=== PATIENT | male | born 1930 | race Hispanic/Latino ===

== ENCOUNTER 2017-04-12 16:17 | Inpatient (IN) | payer MEDICARE, OTHER ==
--- NOTE | 2017-04-12 16:44 | ED PDOC ---
Psych Transfer Clearance - Clearance Statement Clearance Statement: Reviewed vital signs, lab results and transfer papers. Patient clinically stable for psychiatric admission.
--- NOTE | 2017-04-12 19:00 | PCM.BM ---
<Patricia Calderon - Last Filed: 04/12/17 18:58> Treatment Plan Problems - Problems identified on initial assessmt Anxiety Date Initiated: 04/12/17 Time Initiated: 18:59 Assessment reference: NA Status: Active Priority: 3 Agitated/ aggressive behavior Date Initiated: 04/12/17 Time Initiated: 19:00 Assessment reference: NA Status: Active Priority: 1 Ineffective Implse Control Date Initiated: 04/12/17 Time Initiated: 19:01 Assessment reference: NA Status: Active Priority: 2 Treatment assets and liabiliti Patient Assests: cooperative, motivated, good support system, negotiates basic needs Patient Liabilities: medical problems, imparied memory - Milieu Protocol Maintain good personal hygiene: daily Encourage regular showers, daily Remind patient to perform daily oral care, daily Assist patient to perform ADL's Maintain personal safety: every shift Educate patient to report safety concerns to staff, every shift Monitor environment for contraband/sharps Medication safety: Monitor for expected outcome, potential side effects: every shift, Assess barriers to learning: every shift, Assess readiness for medication education: every shift <Janie Mckeon - Last Filed: 04/13/17 12:22> - Diagnosis (1) Dementia with behavioral disturbance Status: Acute Interventions: Mediation management, Individual and group therapy, Psychoeducation 04/13/17 12:23 (2) Mood disorder Status: Acute Interventions: Mediation management, Individual and group therapy, Psychoeducation 04/13/17 12:23 <Wilma Bernard - Last Filed: 04/14/17 14:45> Family Contact Family contact: Patient agrees to contact, Telephone contact initiated by staff , Family meeting planned to review treatment plan Family contact name: Mahad (Daughters) Family contacted how many times per week?: 2 Family contact comment: [phone] - Delmy - [facility] Agency contact number: Discharge/Continuing Care - Education Needs Education Needs: Family Medication, Family Diagnosis/Disease Process, Family Coping Skills, Family Anger Management skills, Family Placement options, Family Community resources, Family Activities of Daily Living, Family Uses of Medical Equipment, Family Health Practices/Safety, Family Personal Hygiene/Grooming, Family Aftercare Safety Plan, Patient Medication, Patient Diagnosis/Disease Process, Patient Coping Skills, Patient Anger Management skills, Patient Placement options, Patient Community resources, Patient Activities of Daily Living, Patient Uses of Medical Equipment, Patient Health Practices/Safety, Patient Personal Hygiene/Grooming, Patient Aftercare Safety Plan - Discharge Discharge Criteria: Tolerates medication w/o severe side effects, Free of Suicidal thoughts, Free of agitation, Normal sleep pattern, Ability to care for self, Reduction of target symptoms Discharge to:: Other (Subacute Rehab vs. Assisted Living Facility) - Additional Comments 04/14/17 14:44 Reason for admission reviewed and discussed. Pt's social and medical issues discussed. Pt's medications reviewed. Tx plan reviewed and discussed. Treatment plan will be reviewed with Delmy James and Leanne on 04/16/17 during scheduled family meeting. - Treatment Team Participation Discussed with Family/SO: No (Will be discussed during family meeting on 2016) Was Patient/Family/SO present at Treatment Team Meeting: No
[2017-04-12] MEDS ORDERED: Alum-Mag Hydrox-Simethicone Susp (30 mL) PO PRN (19:27)
[2017-04-12] MEDS ORDERED: Magnesium Hydroxide Susp 30 ml UD PO PRN (19:27)
[2017-04-12] MEDS ORDERED: Influenza Vaccine 18yr & older 0.5 ML/45 MCG SYR IM ONE (21:00)
[2017-04-12] MEDS ORDERED: Pneumococcal 23-Valent Vaccine IM ONE (21:00)
[2017-04-13 00:34] LABS: RBC URINE < 1 /hpf (0-3); URINE BILIRUBIN NEGATIVE (NEGATIVE); URINE BLOOD NEGATIVE (NEGATIVE); URINE COLOR STRAW (YELLOW); URINE GLUCOSE (UA) NEG (Normal); URINE KETONE NEGATIVE (NEGATIVE); URINE LEUKOCYTE ESTERASE NEG Leu/uL (Negative); URINE PROTEIN NEGATIVE (NEGATIVE); URINE UROBILINOGEN 0.2-1.0 mg/dL (0.2-1.0); WBC URINE < 1 /hpf (0-5)
[2017-04-13 06:50] LABS: HEMATOCRIT 40.9 % (35.0-51.0); MEAN CELL VOLUME 89.5 fl (80.0-94.0); MEAN CORPUSCULAR HEMOGLOBIN 30.2 pg (27.0-31.0); MEAN CORPUSCULAR HGB CONC 33.8 g/dL (33.0-37.0); RED CELL DISTRIBUTION WIDTH 14.5 % (11.5-14.5); WHITE BLOOD COUNT 6.9 K/uL (4.8-10.8)
[2017-04-13 07:16] LABS: ALB/GLOB RATIO 1.3 (1.0-2.1); ALKALINE PHOSPHATASE 62 U/L (38-126); ALT/SGPT 37 U/L (21-72); AST/SGOT 29 U/L (17-59); BILIRUBIN,TOTAL 0.5 mg/dl (0.2-1.3); BLOOD UREA NITROGEN 20 mg/dl (9-20); CALCIUM 9.4 mg/dL (8.4-10.2); CARBON DIOXIDE 26 mmol/L (22-30); CHLORIDE 108 mmol/L (98-107); CHOLESTEROL 140 mg/dL (0-199); GFR AFRICAN-AMERICAN > 60; GLUCOSE,RANDOM 111 mg/dL (75-110); POTASSIUM 3.5 MMOL/L (3.6-5.0); SODIUM 147 mmol/l (132-148); TOTAL PROTEIN 7.3 G/DL (6.3-8.2)
[2017-04-13 08:03] LABS: T4 8.39 ug/dl (5.5-11.0)
[2017-04-13 08:55] LABS: THYROID STIMULATING HORMONE 2.33 mIU/ML (0.46-4.68)
[2017-04-13] MEDS ORDERED: Divalproex 125 mg Sprinkle Capsule PO SCH (09:00)
[2017-04-13] MEDS: Artificial Tears Opht Soln OD SCH ×2 (09:36→16:32)
--- NOTE | 2017-04-13 11:38 | PCM.PSYCH ---
Initial Psychiatric Evaluation - Initial Psychiatric Evaluation Type of Admission: Voluntary Legal Status: Capacity Chief Complaint (in patient's own words): "I keep crying" Patient's Reaction to Hospitalization: HPI: 86 yo male w/ h/o dementia, depression, presents after he mad a comment that he would be better off to his family. Patient reports a history of depression. He also reports that he cries spontaneously. +Good appetite. + Sleep disturbances. Denies psychosis, SI/HI/paranoia/delusions. He is concerned that he is on too many medications and would like them reduced if possible. He also complaints of chronic pain. He states that he feels anxious intermittently. He reports that being mu-ism is a protective factor against suicide. +Memory deficits. +Worries about the welfare of his demented who resides in a different [facility]. Case discussed w/ POA daughter Delmy Estrada, who stated that patient has been more verbally threatening to staff and irritable. She believes his medications need to evaluated. Treatment options discussed with the POA and she gave commercial insurance underwriter to increase medications as clinically indicated. As per daughter, patient may have a history of bipolar disorder. FHx: History of mental illness, but daughter is unaware what the diagnosis was. PPHx: Currently receives psychiatric treatment at the [facility]. History of outpatient and inpatient treatment, last 3 years ago at [facility]. PMHx: HTN, GERD, Dementia, DM, possible seizure disorder (pt on Keppra), chronic pain, constipation. SHx: Resident at a [facility]. Denies drugs/etoh/cig use. . Retired class b truck driver. Used to have 5 children (1 ). Current Medications: Active Medications Generic Name Dose Route Start Last Admin Trade Name Freq PRN Reason Stop Dose Admin Acetaminophen 650 mg 04/12/17 19:27 04/12/17 21:06 Tylenol 325mg Tab PO 650 mg Q4 PRN Administration Pain, moderate (4-7) Al Hydrox/Mg Hydrox/Simethicone 30 ml 04/12/17 19:27 Maalox Plus 30 Ml PO Q4 PRN Dyspepsia Amlodipine Besylate 10 mg 04/13/17 09:00 04/13/17 09:39 Norvasc PO 10 mg DAILY GONZALO Administration Artificial Tears 1 drop 04/13/17 09:00 04/13/17 09:36 Artificial Tears OD 1 drop BID GONZALO Administration Atenolol 25 mg 04/13/17 09:00 04/13/17 09:40 Tenormin PO 25 mg DAILY GONZALO Administration Divalproex Sodium 125 mg 04/13/17 09:00 04/13/17 09:37 Depakote Sprinkles PO 125 mg BID GONZALO Administration Docusate Sodium 100 mg 04/13/17 09:00 04/13/17 09:37 Colace PO 100 mg BID GONZALO Administration Donepezil HCl 10 mg 04/12/17 22:00 04/12/17 21:06 Aricept PO 10 mg HS GONZALO Administration Duloxetine HCl 30 mg 04/12/17 22:00 Cymbalta PO HS GONZALO Famotidine 20 mg 04/13/17 09:00 04/13/17 09:38 Pepcid PO 20 mg Q12 GONZALO Administration Ferrous Sulfate 325 mg 04/13/17 09:00 04/13/17 09:37 Feosol PO 325 mg BID GONZALO Administration Folic Acid 1 mg 04/13/17 09:00 04/13/17 09:37 Folic Acid PO 1 mg DAILY GONZALO Administration Gabapentin 300 mg 04/13/17 09:00 04/13/17 09:38 Neurontin PO 300 mg BID GONZALO Administration Hydroxyzine HCl 10 mg 04/12/17 21:38 Atarax PO Q8 PRN Itching / Pruritus Levetiracetam 500 mg 04/13/17 09:00 04/13/17 09:38 Keppra PO 500 mg DAILY GONZALO Administration Lisinopril 20 mg 04/13/17 09:00 04/13/17 09:39 Zestril PO 20 mg DAILY GONZALO Administration Lorazepam 0.5 mg 04/12/17 19:27 Ativan PO 04/26/17 19:28 HS PRN Insomnia Lorazepam 0.5 mg 04/12/17 19:27 Ativan PO 04/26/17 19:28 Q6 PRN Anixety/Agitation Magnesium Hydroxide 30 ml 04/12/17 19:27 Milk Of Magnesia PO HS PRN Constipation Memantine 10 mg 04/13/17 09:00 04/13/17 09:38 Namenda PO 10 mg BID GONZALO Administration Quetiapine Fumarate 50 mg 04/12/17 22:00 04/12/17 21:06 Seroquel PO 50 mg HS GONZALO Administration Quetiapine Fumarate 25 mg 04/13/17 09:00 04/13/17 09:38 Seroquel PO 25 mg BID GONZALO Administration Sertraline HCl 75 mg 04/13/17 09:00 04/13/17 09:38 Zoloft PO 75 mg DAILY GONZALO Administration Sitagliptin Phosphate 50 mg 04/13/17 09:00 04/13/17 09:37 Januvia PO 50 mg DAILY GONZALO Administration Sucralfate 1 gm 04/13/17 09:00 04/13/17 09:37 Carafate Tab PO 1 gm TID GONZALO Administration Thiamine HCl 100 mg 04/13/17 09:00 04/13/17 09:37 Vitamin B1 Tab PO 100 mg DAILY GONZALO Administration Past Psychiatric History - Past Psychiatric History Previous Treatment History: Inpatient Pertinent Medical Hx (Current Medical&Sleep Prob, Allergies): Allergies Allergy/AdvReac Type Severity Reaction Status Date / Time aspirin Allergy RASH Verified 04/12/17 16:21 Acetaminophen [Tylenol 325mg tab] 650 mg PO Q4 PRN 04/12/17 Atenolol [Tenormin] 25 mg PO DAILY 04/12/17 Dextran 70/Hypromellose [Artificial Tears] 1 04/12/17 Dextran 70/Hypromellose [Artificial Tears] 1 drop OD BID 04/12/17 Docusate [Colace] 100 mg PO BID 04/12/17 Famotidine [Pepcid] 20 mg PO Q12 04/12/17 Ferrous Sulfate [Feosol] 325 mg PO BID 04/12/17 Folic Acid 1 mg PO DAILY 04/12/17 Gabapentin [Neurontin] 300 mg PO BID 04/12/17 Levetiracetam [Keppra] 500 mg PO DAILY 04/12/17 Lidocaine 5% [Lidoderm] 5 % TOP DAILY 04/12/17 Lisinopril [Zestril] 20 mg PO DAILY 04/12/17 Melatonin [Melatin] 3 mg HS 04/12/17 Multivitamin Therapeutic Tab [Thera Tab] 1 tab PO DAILY 04/12/17 Omeprazole [Omeprazole] 20 mg PO DAILY 04/12/17 Oxycodone HCl/Acetaminophen [Acetaminophen-Oxycodone 325 mg-5 mg] 1 tab PO Q12 04/12/17 SITagliptin [Januvia] 50 mg PO DAILY 04/12/17 Sucralfate [Carafate Tab] 1 gm PO TID 04/12/17 Thiamine Mononitrate [Optimum Vitamin B-1] 100 mg PO DAILY 04/12/17 amLODIPine [Norvasc] 10 mg PO DAILY 04/12/17 hydrOXYzine HCl [Atarax] 10 mg PO Q8 PRN 04/12/17 Review of Systems - Psychiatric Psychiatric: As Per HPI, Abnormal Sleep Pattern, Behavioral Changes, Confusion, Depression, Difficulty Concentrating, Irritability, Memory Loss, Mood Swings Mental Status Examination - Personal Presentation Personal Presentation: Looks stated age - Affect Affect: Constricted - Motor Activity Motor Activity: Calm - Reliability in Providing Information Reliability in Providing Information: Poor, due to cognitve impairment - Speech Speech: Coherent - Mood Mood: Depressed, Anxious - Formal Thought Process Formal Thought Process: Loosening of associations - Hallucinations/Delusions Additional comments: Denies AH/VH - Obsessions/Compulsions Obsessions: No Compulsions: No - Cognitive Functions Orientation: Person, Place, Situation, Time Sensorium: Alert Attention/Concentration: Attentive Estimate of Intelligence: Average Judgement: Imparied, as evidence by: Lack of insight into illness Memory: Recent impaired, as evidence by: Inability to recall events of the day, Recent imparied as evidence by:Inability to complete 3/3 object recall - Risk Risk: Diminished functioning - Strength & Assets Inventory Strength & Assets Inventory: Family support, Cooperative - Limitations Limitations: Decreased memory, recent DSM 5 DX - DSM 5 DSM 5 Diagnosis: Dementia w/ behavioral disturbances; Mood Disorder - Recommended/Plan of Treatment Treatment Recommendations and Plan of Treatment: Dementia w/ behavioral disturbances; Mood Disorder -Admit to [facility] -Taper and stop Zoloft, Increase Cymbalta to 40 mg PO Daily -Stop Seroquel, can restart if clinically indicated -Increase Depakote to 250 mg PO BID; check VPA level 04/16/17 -Continue Aricept and Namenda -Hospitalist consult -Individual and group therapy -Case discussed w/ POA; collateral history obtained -Disposition planning Projected ELOS: 5-7 days Discharge Plan and Discharge Criteria: Discharge when psychiatrically stable - Smoking Cessation Smoking Cessation Initiated: No Reason for not providing: Not indicated
[2017-04-13 12:38] LABS: FOLATE > 20.0 ng/mL
--- NOTE | 2017-04-13 16:03 | CP.PCM.CON ---
History of Present Illness - History of Present Illness History of Present Illness: 86 yo male with history of HTN, DM2, Dementia, Seizure DO? and Depression admitted to [facility] because of suicidal ideation. Review of Systems - Review of Systems All systems: reviewed and no additional remarkable complaints except (aside from those mentioned above, 12 point system review were negative by me) Past Patient History - Tetanus Immunizations Tetanus Immunization: Unknown - Past Social History Smoking Status: Never Smoked Alcohol: None Home Situation {Lives}: Alf - CARDIAC Hx Cardiac Disorders: Yes Hx Hypertension: Yes - PULMONARY Hx Respiratory Disorders: No - NEUROLOGICAL Hx Neurological Disorder: Yes Hx Dementia: Yes Hx Dizziness: Yes Hx Seizures: No - HEENT Hx HEENT Problems: Yes Hx Cataracts: Yes (Hx Sx bilat) - RENAL Hx Chronic Kidney Disease: No - ENDOCRINE/METABOLIC Hx Diabetes Mellitus Type 2: Yes - HEMATOLOGICAL/ONCOLOGICAL Hx Blood Disorders: No Hx AIDS: No Hx Cancer: No - INTEGUMENTARY Hx Dermatological Problems: No - MUSCULOSKELETAL/RHEUMATOLOGICAL Hx Falls: Yes (4 x in past month) - GASTROINTESTINAL Hx Gastritis: Yes - GENITOURINARY/GYNECOLOGICAL Hx Genitourinary Disorders: No - PSYCHIATRIC Hx Substance Use: No - SURGICAL HISTORY Hx Surgeries: Yes Hx Eye Surgery: Yes (cataracts bilat) Hx Orthopedic Surgery: Yes (low back fusions) - ANESTHESIA Hx Anesthesia: Yes Hx Anesthesia Reactions: No Hx Malignant Hyperthermia: No Has any member of the family had a problem w/ anesthesia?: No Meds Allergies/Adverse Reactions: Allergies Allergy/AdvReac Type Severity Reaction Status Date / Time aspirin Allergy RASH Verified 04/12/17 16:21 - Medications Medications: Current Medications Acetaminophen (Tylenol 325mg Tab) 650 mg PO Q4 PRN PRN Reason: Pain, moderate (4-7) Last Admin: 04/13/17 12:30 Dose: 650 mg Al Hydrox/Mg Hydrox/Simethicone (Maalox Plus 30 Ml) 30 ml PO Q4 PRN PRN Reason: Dyspepsia Amlodipine Besylate (Norvasc) 10 mg PO DAILY [facility] Last Admin: 04/13/17 09:39 Dose: 10 mg Artificial Tears (Artificial Tears) 1 drop OD BID [facility] Last Admin: 04/13/17 09:36 Dose: 1 drop Atenolol (Tenormin) 25 mg PO DAILY [facility] Last Admin: 04/13/17 09:40 Dose: 25 mg Divalproex Sodium (Depakote Sprinkles) 250 mg PO BID [facility] Docusate Sodium (Colace) 100 mg PO BID [facility] Last Admin: 04/13/17 09:37 Dose: 100 mg Donepezil HCl (Aricept) 10 mg PO HS [facility] Last Admin: 04/12/17 21:06 Dose: 10 mg Duloxetine HCl (Cymbalta) 40 mg PO DAILY [facility] Famotidine (Pepcid) 20 mg PO Q12 [facility] Last Admin: 04/13/17 09:38 Dose: 20 mg Ferrous Sulfate (Feosol) 325 mg PO BID [facility] Last Admin: 04/13/17 09:37 Dose: 325 mg Folic Acid (Folic Acid) 1 mg PO DAILY [facility] Last Admin: 04/13/17 09:37 Dose: 1 mg Gabapentin (Neurontin) 300 mg PO BID [facility] Last Admin: 04/13/17 09:38 Dose: 300 mg Hydroxyzine HCl (Atarax) 10 mg PO Q8 PRN PRN Reason: Itching / Pruritus Levetiracetam (Keppra) 500 mg PO Q12 [facility] Lisinopril (Zestril) 20 mg PO DAILY [facility] Last Admin: 04/13/17 09:39 Dose: 20 mg Lorazepam (Ativan) 0.5 mg PO HS PRN PRN Reason: Insomnia Stop: 04/26/17 19:28 Lorazepam (Ativan) 0.5 mg PO Q6 PRN PRN Reason: Anixety/Agitation Stop: 04/26/17 19:28 Magnesium Hydroxide (Milk Of Magnesia) 30 ml PO HS PRN PRN Reason: Constipation Memantine (Namenda) 10 mg PO BID [facility] Last Admin: 04/13/17 09:38 Dose: 10 mg Sitagliptin Phosphate (Januvia) 50 mg PO DAILY [facility] Last Admin: 04/13/17 09:37 Dose: 50 mg Sucralfate (Carafate Tab) 1 gm PO TID [facility] Last Admin: 04/13/17 12:31 Dose: 1 gm Thiamine HCl (Vitamin B1 Tab) 100 mg PO DAILY [facility] Last Admin: 04/13/17 09:37 Dose: 100 mg Physical Exam - Constitutional Appears: No Acute Distress - Head Exam Head Exam: ATRAUMATIC - Eye Exam Eye Exam: absent: Scleral icterus - ENT Exam ENT Exam: Mucous Membranes Moist - Neck Exam Neck exam: Negative for: Meningismus - Respiratory Exam Respiratory Exam: absent: Rhonchi, Wheezes, Respiratory Distress - Cardiovascular Exam Cardiovascular Exam: REGULAR RHYTHM, +S1, +S2 - GI/Abdominal Exam GI & Abdominal Exam: Soft. absent: Tenderness - Rectal Exam Rectal Exam: Deferred - Neurological Exam Neurological exam: Alert, Oriented x3 - Psychiatric Exam Psychiatric exam: Normal Affect - Skin Skin Exam: Dry, Intact Results - Vital Signs Recent Vital Signs: Last Vital Signs Temp 98.9 F 04/12/17 16:21 Pulse 75 04/13/17 09:40 Resp 16 04/12/17 16:21 BP 175/91 H 04/13/17 09:40 Pulse Ox 95 04/12/17 16:21 - Labs Result Diagrams: 04/13/17 06:10 04/13/17 06:10 Labs: Laboratory Results - last 24 hr 04/12/17 04/13/17 04/13/17 23:35 06:10 06:10 WBC 6.9 RBC 4.57 Hgb 13.8 Hct 40.9 MCV 89.5 MCH 30.2 MCHC 33.8 RDW 14.5 Plt Count 133 Sodium 147 Potassium 3.5 L Chloride 108 H Carbon Dioxide 26 Anion Gap 17 BUN 20 Creatinine 0.8 Est GFR ( Amer) > 60 Est GFR (Non-Af Amer) > 60 POC Glucose (mg/dL) Random Glucose 111 H Hemoglobin A1c Calcium 9.4 Ferritin 34.1 Total Bilirubin 0.5 AST 29 ALT 37 Alkaline Phosphatase 62 Total Protein 7.3 Albumin 4.1 Globulin 3.2 Albumin/Globulin Ratio 1.3 Triglycerides 134 Cholesterol 140 LDL Cholesterol Direct 56 HDL Cholesterol 46 Vitamin B12 617 Folate > 20.0 Free T4 Thyroxine (T4) 8.39 TSH 3rd Generation 2.33 Urine Color Straw Urine Clarity Clear Urine pH 6.0 Ur Specific Reliance 1.010 Urine Protein Negative Urine Glucose (UA) Neg Urine Ketones Negative Urine Blood Negative Urine Nitrate Negative Urine Bilirubin Negative Urine Urobilinogen 0.2-1.0 Ur Leukocyte Esterase Neg Urine RBC (Auto) < 1 Urine Microscopic WBC < 1 04/13/17 04/13/17 04/13/17 06:10 06:10 06:59 WBC RBC Hgb Hct MCV MCH MCHC RDW Plt Count Sodium Potassium Chloride Carbon Dioxide Anion Gap BUN Creatinine Est GFR ( Amer) Est GFR (Non-Af Amer) POC Glucose (mg/dL) 116 H Random Glucose Hemoglobin A1c 5.6 Calcium Ferritin Total Bilirubin AST ALT Alkaline Phosphatase Total Protein Albumin Globulin Albumin/Globulin Ratio Triglycerides Cholesterol LDL Cholesterol Direct HDL Cholesterol Vitamin B12 Folate Free T4 1.02 Thyroxine (T4) TSH 3rd Generation Urine Color Urine Clarity Urine pH Ur Specific Reliance Urine Protein Urine Glucose (UA) Urine Ketones Urine Blood Urine Nitrate Urine Bilirubin Urine Urobilinogen Ur Leukocyte Esterase Urine RBC (Auto) Urine Microscopic WBC Assessment & Plan (1) Dementia with behavioral disturbance Status: Acute Comment: psyche is managing (2) Suicidal ideation Status: Acute Comment: psyche is managing (3) HTN (hypertension) Status: Chronic Comment: BP stable. continue Amlodipine, Lisinopril and Atenolol (4) DM2 (diabetes mellitus, type 2) Status: Acute Comment: BS controlled. continue Januvia 50mg PO daily. HA1C, BMP in am (5) Seizure Status: Acute Comment: Patient not aware of history of Seizure. on Keppra 500mg PO daily and Neurontin 300mg PO BID. neuro consult with Dr Lozano
[2017-04-13] MEDS: Divalproex 125 mg Sprinkle Capsule PO SCH (16:34)
[2017-04-14 07:00] LABS: BLOOD UREA NITROGEN 30 mg/dl (9-20); CALCIUM 9.2 mg/dL (8.4-10.2); CARBON DIOXIDE 26 mmol/L (22-30); CHLORIDE 105 mmol/L (98-107); GFR AFRICAN-AMERICAN > 60; GLUCOSE,RANDOM 106 mg/dL (75-110); POTASSIUM 3.7 MMOL/L (3.6-5.0); SODIUM 144 mmol/l (132-148)
[2017-04-14] MEDS: Divalproex 125 mg Sprinkle Capsule PO SCH ×2 (08:33→17:59)
[2017-04-14] MEDS: Artificial Tears Opht Soln OD SCH ×2 (08:33→17:56)
--- NOTE | 2017-04-14 11:49 | PCM.PYCHPN ---
Psychiatric Progress Note - Psychiatric Progress Note Patient seen today, length of contact: Patient evaluated, case discussed with team, chart reviewed, 35 min Patient Chief Complaint: "I'm okay" Problems Identified/Issues Discussed: No episodes of agitation or verbal aggression. Patient is calm, cooperative and pleasant. He is A + O x 3, but does show signs of memory deficits. He denies currently feeling depressed or anxious. No SI/HI. Medication Change: No Medical Record Reviewed: Yes Consults ordered or reviewed: Medicine consult appreciated; Neurology consult ordered Mental Status Examination - Cognitive Function Orientation: Person, Place, Situation, Time Memory: Impaired Attention: Poor Concentration: Poor Association: Loose Fund of Knowledge: Poor Decription of patient's judgement and insights: Chronic poor I/J due to dementia - Mood Mood: Neutral - Affect Affect: Broad - Speech Speech: Appropriate - Formal Thought Process Formal Thought Process: Loosening of associations Psychotic Thoughts and Behaviors: Denies AH/VH/paranoia - Suicidal Ideation Suicidal Ideation: No - Homicidal Ideation Homicidal Ideation: No Goal/Treatment Plan - Goal/Treatment Plan Need for Continued Stay: Remain at risks for inpatient hospitalization, Discharge may exacerbated symptoms, Severe functional impairment Progress Toward Problem(s) and Goals/Treatment Plan: Dementia w/ behavioral disturbances; Mood Disorder -Taper and stop Zoloft, Continue Cymbalta 40 mg PO Daily -Seroquel stopped, can restart if clinically indicated -Continue Depakote 250 mg PO BID; check VPA level 04/16/17 -Continue Aricept and Namenda -Hospitalist consult appreciated; neurology consult ordered -Individual and group therapy -Case discussed w/ POA; collateral history obtained -Disposition planning Estimated Date of D/C: 04/19/17
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
[2017-04-14] MEDS: Lidocaine 5% Patch TD SCH (17:56)
[2017-04-15] MEDS: Divalproex 125 mg Sprinkle Capsule PO SCH ×2 (08:09→17:04)
[2017-04-15] MEDS: Artificial Tears Opht Soln OD SCH ×2 (08:15→17:01)
[2017-04-15] MEDS: Lidocaine 5% Patch TD SCH (08:16)
--- NOTE | 2017-04-15 13:00 | PCM.PYCHPN ---
Psychiatric Progress Note - Psychiatric Progress Note Patient seen today, length of contact: Patient evaluated, case discussed with team, chart reviewed, 35 min Patient Chief Complaint: "I'm okay" Problems Identified/Issues Discussed: No episodes of agitation or verbal aggression. Neurology consult appreciated, Keppra discontinued. Patient is calm, cooperative and pleasant. He is A + O x 3 , but does show signs of memory deficits. He denies currently feeling depressed or anxious. No SI/HI. He reports chronic pain. Medication Change: Yes (Keppra stopped) Medical Record Reviewed: Yes Consults ordered or reviewed: Medicine and Neurology consults appreciated Mental Status Examination - Cognitive Function Orientation: Person, Place, Situation, Time Memory: Impaired Attention: Poor Concentration: Poor Association: Loose Fund of Knowledge: Poor Decription of patient's judgement and insights: Chronic poor I/J due to dementia - Mood Mood: Neutral - Affect Affect: Broad - Speech Speech: Appropriate - Formal Thought Process Formal Thought Process: Loosening of associations Psychotic Thoughts and Behaviors: Denies AH/VH/paranoia - Suicidal Ideation Suicidal Ideation: No - Homicidal Ideation Homicidal Ideation: No Goal/Treatment Plan - Goal/Treatment Plan Need for Continued Stay: Remain at risks for inpatient hospitalization, Discharge may exacerbated symptoms, Severe functional impairment Progress Toward Problem(s) and Goals/Treatment Plan: Dementia w/ behavioral disturbances; Mood Disorder -Continue Cymbalta 40 mg PO Daily -Continue Depakote 250 mg PO BID; check VPA level 04/16/17 -Continue Aricept and Namenda -Neurology consult appreciated, Keppra stopped -Hospitalist consult appreciated -Individual and group therapy -Case discussed w/ POA; collateral history obtained -Family meeting scheduled for tomorrow -Disposition planning Estimated Date of D/C: 04/19/17 - Smoking Cessation Smoking Cessation Initiated: No Reason for not providing: Not indicated
--- NOTE | 2017-04-16 08:45 | PCM.PYCHPN ---
Psychiatric Progress Note - Psychiatric Progress Note Patient seen today, length of contact: Patient evaluated, case discussed with team, chart reviewed, 35 min Patient Chief Complaint: "I'm okay" Problems Identified/Issues Discussed: Patient continues to be in good behavioral control. No episodes of aggression or agitation. Patient is calm, cooperative and pleasant. He is A + O x 3, but does show signs of memory deficits. He denies currently feeling depressed or anxious. No SI/HI. He reports chronic pain. Diagnostic Results: VPA 25.3 on 04/16/17 Medication Change: No Medical Record Reviewed: Yes Consults ordered or reviewed: Medicine, Neurology, Psychology, Pain Management consults Mental Status Examination - Cognitive Function Orientation: Person, Place, Situation, Time Memory: Impaired Attention: Poor Concentration: Poor Association: Loose Fund of Knowledge: Poor Decription of patient's judgement and insights: Chronic poor I/J due to dementia - Mood Mood: Neutral - Affect Affect: Broad - Speech Speech: Appropriate - Formal Thought Process Formal Thought Process: Loosening of associations Psychotic Thoughts and Behaviors: Denies AH/VH/paranoia - Suicidal Ideation Suicidal Ideation: No - Homicidal Ideation Homicidal Ideation: No Goal/Treatment Plan - Goal/Treatment Plan Need for Continued Stay: Remain at risks for inpatient hospitalization, Discharge may exacerbated symptoms, Severe functional impairment Progress Toward Problem(s) and Goals/Treatment Plan: Dementia w/ behavioral disturbances; Mood Disorder -Continue Cymbalta 40 mg PO Daily -Continue Depakote 250 mg PO BID; VPA 25.3 on 04/16/17 -Continue Aricept and Namenda -Neurology consult appreciated, [place] stopped -Hospitalist consult appreciated -Pain management consult ordered for evaluation of medications for chronic pain -Individual and group therapy -Case discussed w/ POA; collateral history obtained -Family meeting scheduled for today -Disposition planning Estimated Date of D/C: 04/19/17 - Smoking Cessation Smoking Cessation Initiated: No Reason for not providing: Not indicated
[2017-04-16] MEDS: Artificial Tears Opht Soln OD SCH ×2 (08:50→17:41)
[2017-04-16] MEDS: Divalproex 125 mg Sprinkle Capsule PO SCH ×2 (08:51→17:43)
[2017-04-16] MEDS: Lidocaine 5% Patch TD SCH (08:54)
--- NOTE | 2017-04-16 10:49 | CP.PCM.CON ---
History of Present Illness - History of Present Illness History of Present Illness: Patient is admitted for suicidal ideation and referred for pain management. Patient suffers from dementia but is able to give a somewhat coherent history. He admitted to feeling depressed and sucidial due to recent happenings with his , but has felt better since his admission. He is currently on Cymbalta and Neurontin, but doesn't recall being on any other medications at the [place]. He can take NSAIDs and has allergy to ASA. He admits to pain over the lower back, slightly to the right, without radiation down the legs. The pain is most severe when he's walking or moving, but is tolerable at rest. He states that physicians and caretakers feel that he's been on too many neuropathic medications and that has contributed to his feeling lightheaded and falling. Keppra has been discontinued since admission. Past Patient History - Tetanus Immunizations Tetanus Immunization: Unknown - Past Social History Smoking Status: Never Smoked Alcohol: None Home Situation {Lives}: [facility] - CARDIAC Hx Cardiac Disorders: Yes Hx Hypertension: Yes - PULMONARY Hx Respiratory Disorders: No - NEUROLOGICAL Hx Neurological Disorder: Yes Hx Dementia: Yes Hx Dizziness: Yes Hx Seizures: No - HEENT Hx HEENT Problems: Yes Hx Cataracts: Yes (Hx Sx bilat) - RENAL Hx Chronic Kidney Disease: No - ENDOCRINE/METABOLIC Hx Diabetes Mellitus Type 2: Yes - HEMATOLOGICAL/ONCOLOGICAL Hx Blood Disorders: No Hx AIDS: No Hx Cancer: No - INTEGUMENTARY Hx Dermatological Problems: No - MUSCULOSKELETAL/RHEUMATOLOGICAL Hx Falls: Yes (4 x in past month) - GASTROINTESTINAL Hx Gastritis: Yes - GENITOURINARY/GYNECOLOGICAL Hx Genitourinary Disorders: No - PSYCHIATRIC Hx Substance Use: No - SURGICAL HISTORY Hx Surgeries: Yes Hx Eye Surgery: Yes (cataracts bilat) Hx Orthopedic Surgery: Yes (low back fusions) - ANESTHESIA Hx Anesthesia: Yes Hx Anesthesia Reactions: No Hx Malignant Hyperthermia: No Has any member of the family had a problem w/ anesthesia?: No Meds Allergies/Adverse Reactions: Allergies Allergy/AdvReac Type Severity Reaction Status Date / Time aspirin Allergy RASH Verified 04/12/17 16:21 - Medications Medications: Current Medications Acetaminophen (Tylenol 325mg Tab) 650 mg PO Q4 PRN PRN Reason: Pain, moderate (4-7) Last Admin: 04/16/17 03:43 Dose: 650 mg Al Hydrox/Mg Hydrox/Simethicone (Maalox Plus 30 Ml) 30 ml PO Q4 PRN PRN Reason: Dyspepsia Amlodipine Besylate (Norvasc) 10 mg PO DAILY [facility] Last Admin: 04/16/17 08:58 Dose: 10 mg Artificial Tears (Artificial Tears) 1 drop OD BID [facility] Last Admin: 04/16/17 08:50 Dose: 1 drop Atenolol (Tenormin) 25 mg PO DAILY [facility] Last Admin: 04/16/17 08:59 Dose: 25 mg Divalproex Sodium (Depakote Sprinkles) 250 mg PO BID [facility] Last Admin: 04/16/17 08:51 Dose: 250 mg Docusate Sodium (Colace) 100 mg PO BID [facility] Last Admin: 04/16/17 09:03 Dose: 100 mg Donepezil HCl (Aricept) 10 mg PO HS [facility] Last Admin: 04/15/17 21:33 Dose: 10 mg Duloxetine HCl (Cymbalta) 40 mg PO DAILY [facility] Last Admin: 04/16/17 08:50 Dose: 40 mg Famotidine (Pepcid) 20 mg PO Q12 [facility] Last Admin: 04/16/17 08:53 Dose: 20 mg Ferrous Sulfate (Feosol) 325 mg PO BID [facility] Last Admin: 04/16/17 08:52 Dose: 325 mg Folic Acid (Folic Acid) 1 mg PO DAILY [facility] Last Admin: 04/16/17 08:51 Dose: 1 mg Gabapentin (Neurontin) 300 mg PO BID [facility] Last Admin: 04/16/17 08:53 Dose: 300 mg Hydroxyzine HCl (Atarax) 10 mg PO Q8 PRN PRN Reason: Itching / Pruritus Lidocaine (Lidoderm) 1 ea TD DAILY [facility] Last Admin: 04/16/17 08:54 Dose: 1 ea Lisinopril (Zestril) 20 mg PO DAILY [facility] Last Admin: 04/16/17 08:59 Dose: 20 mg Lorazepam (Ativan) 0.5 mg PO HS PRN PRN Reason: Insomnia Stop: 04/26/17 19:28 Lorazepam (Ativan) 0.5 mg PO Q6 PRN PRN Reason: Anixety/Agitation Stop: 04/26/17 19:28 Magnesium Hydroxide (Milk Of Magnesia) 30 ml PO HS PRN PRN Reason: Constipation Memantine (Namenda) 10 mg PO BID [facility] Last Admin: 04/16/17 08:52 Dose: 10 mg Sitagliptin Phosphate (Januvia) 50 mg PO DAILY [facility] Last Admin: 04/16/17 08:51 Dose: 50 mg Sucralfate (Carafate Tab) 1 gm PO TID [facility] Last Admin: 04/16/17 08:50 Dose: 1 gm Thiamine HCl (Vitamin B1 Tab) 100 mg PO DAILY [facility] Last Admin: 04/16/17 08:51 Dose: 100 mg Physical Exam - Respiratory Exam Respiratory Exam: NORMAL BREATHING PATTERN - Cardiovascular Exam Cardiovascular Exam: REGULAR RHYTHM - Back Exam Back exam: paraspinal tenderness, vertebral tenderness Additional comments: well-healed surgical scar. 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 Patient is on multiple neuropathic medications, including Neurontin and Cymbalta for pain, but is being weaned off some of them due to sedation. He does have difficulty sleeping at night, however. - continue Neurontin, can either increase night time dose to 600mg, or changing to [place] - continue Cymbalta, can change dosing to qhs and titrate up as tolerated - add low dose NSAIDs to regimen - would withhold opioids, muscl relaxants Status: Acute
[2017-04-17 05:25] VITALS: O2SAT 18
[2017-04-17] MEDS: Artificial Tears Opht Soln OD SCH ×2 (08:32→17:14)
[2017-04-17] MEDS: Divalproex 125 mg Sprinkle Capsule PO SCH ×2 (08:32→17:16)
[2017-04-17] MEDS: Lidocaine 5% Patch TD SCH (08:33)
--- NOTE | 2017-04-17 15:35 | PCM.PYCHPN ---
Psychiatric Progress Note - Psychiatric Progress Note Patient seen today, length of contact: Patient evaluated, case discussed with team, chart reviewed, 35 min Patient Chief Complaint: changes in mood, cognition and pain Problems Identified/Issues Discussed: depression anxiety chronic pain Medical Problems: per chart pt being followed by pain management Diagnostic Results: per psychiatry per medicine per nursing per social work Medication Change: No Medical Record Reviewed: Yes Consults ordered or reviewed: pain management, medical consult reviewed Mental Status Examination - Cognitive Function Orientation: Person, Place, Situation, Time Memory: Impaired Attention: Poor Concentration: Poor Association: Loose Fund of Knowledge: Poor Decription of patient's judgement and insights: impaired - Mood Mood: Neutral - Affect Affect: Broad - Speech Speech: Appropriate - Formal Thought Process Formal Thought Process: Loosening of associations - Suicidal Ideation Suicidal Ideation: No - Homicidal Ideation Homicidal Ideation: No Goal/Treatment Plan - Goal/Treatment Plan Need for Continued Stay: Remain at risks for inpatient hospitalization, Discharge may exacerbated symptoms, Severe functional impairment Progress Toward Problem(s) and Goals/Treatment Plan: inpt milieu adjust meds per status vital signs and clinical observation per status on going followup by pain management discharge planning in progress Estimated Date of D/C: 04/19/17 - Smoking Cessation Smoking Cessation Initiated: No Reason for not providing: pt deferred
[2017-04-18] MEDS: Artificial Tears Opht Soln OD SCH ×2 (08:23→16:58)
[2017-04-18] MEDS: Divalproex 125 mg Sprinkle Capsule PO SCH ×2 (08:27→17:00)
[2017-04-18] MEDS: Lidocaine 5% Patch TD SCH (08:28)
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
--- NOTE | 2017-04-18 14:22 | CP.PCM.CON ---
History of Present Illness - History of Present Illness History of Present Illness: Pt is an 86 year old male admitted to [facility] and referred to the teletypewriter operator for evaluation. On the DRS, pt scored an overall score of 106. Pt scored within normal limits on Construction tasks. Pt's Attention, Conceptualization, Memory and Initiation skills all fell in the Deficient Range. Overall 106 Attention 31 (32 within normal limits) Construction 4 Conceptualization 29 (32 within normal limits) Memory 14 (18 within normal limits Initiation 28 (32 within normal limits) Pt reported living in an [facility]- deficits noted on testing. Thank you for this referral, Dr. Koo Past Patient History - Tetanus Immunizations Tetanus Immunization: Unknown - Past Social History Smoking Status: Never Smoked Alcohol: None Home Situation [facility]Lives[facility] - CARDIAC Hx Cardiac Disorders: Yes Hx Hypertension: Yes - PULMONARY Hx Respiratory Disorders: No - NEUROLOGICAL Hx Neurological Disorder: Yes Hx Dementia: Yes Hx Dizziness: Yes Hx Seizures: No - HEENT Hx HEENT Problems: Yes Hx Cataracts: Yes (Hx Sx bilat) - RENAL Hx Chronic Kidney Disease: No - ENDOCRINE/METABOLIC Hx Diabetes Mellitus Type 2: Yes - HEMATOLOGICAL/ONCOLOGICAL Hx Blood Disorders: No Hx AIDS: No Hx Cancer: No - INTEGUMENTARY Hx Dermatological Problems: No - MUSCULOSKELETAL/RHEUMATOLOGICAL Hx Falls: Yes (4 x in past month) - GASTROINTESTINAL Hx Gastritis: Yes - GENITOURINARY/GYNECOLOGICAL Hx Genitourinary Disorders: No - PSYCHIATRIC Hx Substance Use: No - SURGICAL HISTORY Hx Surgeries: Yes Hx Eye Surgery: Yes (cataracts bilat) Hx Orthopedic Surgery: Yes (low back fusions) - ANESTHESIA Hx Anesthesia: Yes Hx Anesthesia Reactions: No Hx Malignant Hyperthermia: No Has any member of the family had a problem w/ anesthesia?: No Meds Allergies/Adverse Reactions: Allergies Allergy/AdvReac Type Severity Reaction Status Date / Time aspirin Allergy RASH Verified 04/12/17 16:21 - Medications Medications: Current Medications Acetaminophen (Tylenol 325mg Tab) 650 mg PO Q4 PRN PRN Reason: Pain, moderate (4-7) Last Admin: 04/17/17 21:00 Dose: 650 mg Al Hydrox/Mg Hydrox/Simethicone (Maalox Plus 30 Ml) 30 ml PO Q4 PRN PRN Reason: Dyspepsia Amlodipine Besylate (Norvasc) 10 mg PO DAILY [facility] Last Admin: 04/18/17 08:30 Dose: 10 mg Artificial Tears (Artificial Tears) 1 drop OD BID [facility] Last Admin: 04/18/17 08:23 Dose: 1 drop Atenolol (Tenormin) 25 mg PO DAILY [facility] Last Admin: 04/18/17 08:31 Dose: 25 mg Divalproex Sodium (Depakote Sprinkles) 250 mg PO BID [facility] Last Admin: 04/18/17 08:27 Dose: 250 mg Docusate Sodium (Colace) 100 mg PO BID [facility] Last Admin: 04/18/17 08:26 Dose: 100 mg Donepezil HCl (Aricept) 10 mg PO HS [facility] Last Admin: 04/17/17 21:00 Dose: 10 mg Duloxetine HCl (Cymbalta) 40 mg PO DAILY [facility] Last Admin: 04/18/17 08:27 Dose: 40 mg Famotidine (Pepcid) 20 mg PO Q12 [facility] Last Admin: 04/18/17 08:31 Dose: 20 mg Ferrous Sulfate (Feosol) 325 mg PO BID [facility] Last Admin: 04/18/17 08:27 Dose: 325 mg Folic Acid (Folic Acid) 1 mg PO DAILY [facility] Last Admin: 04/18/17 08:28 Dose: 1 mg Gabapentin (Neurontin) 300 mg PO BID [facility] Last Admin: 04/18/17 08:30 Dose: 300 mg Hydroxyzine HCl (Atarax) 10 mg PO Q8 PRN PRN Reason: Itching / Pruritus Ibuprofen (Motrin Tab) 400 mg PO Q6 PRN PRN Reason: Pain, severe (8-10) Lidocaine (Lidoderm) 1 ea TD DAILY [facility] Last Admin: 04/18/17 08:28 Dose: 1 ea Lisinopril (Zestril) 20 mg PO DAILY [facility] Last Admin: 04/18/17 08:32 Dose: 20 mg Lorazepam (Ativan) 0.5 mg PO Q6 PRN PRN Reason: Anixety/Agitation Stop: 04/26/17 19:28 Last Admin: 04/17/17 21:00 Dose: 0.5 mg Magnesium Hydroxide (Milk Of Magnesia) 30 ml PO HS PRN PRN Reason: Constipation Memantine (Namenda) 10 mg PO BID [facility] Last Admin: 04/18/17 08:30 Dose: 10 mg Sitagliptin Phosphate (Januvia) 50 mg PO DAILY [facility] Last Admin: 04/18/17 08:28 Dose: 50 mg Sucralfate (Carafate Tab) 1 gm PO TID [facility] Last Admin: 04/18/17 12:42 Dose: 1 gm Thiamine HCl (Vitamin B1 Tab) 100 mg PO DAILY [facility] Last Admin: 04/18/17 08:32 Dose: 100 mg Results - Vital Signs Recent Vital Signs: Last Vital Signs Temp 97.3 F L 04/18/17 05:39 Pulse 67 04/18/17 08:32 Resp 19 04/18/17 05:39 BP 129/67 04/18/17 08:32 Pulse Ox 18 L 04/17/17 05:24 - Labs Result Diagrams: 04/13/17 06:10 04/14/17 06:15 Labs: Laboratory Results - last 24 hr 04/18/17 05:46 POC Glucose (mg/dL) 108
[2017-04-19 07:05] LABS: ALB/GLOB RATIO 1.4 (1.0-2.1); BILIRUBIN,TOTAL 0.4 mg/dl (0.2-1.3)
[2017-04-19] MEDS: Artificial Tears Opht Soln OD SCH ×2 (08:15→16:59)
[2017-04-19] MEDS: Divalproex 125 mg Sprinkle Capsule PO SCH ×2 (08:19→17:00)
[2017-04-19] MEDS: Lidocaine 5% Patch TD SCH (08:22)
--- NOTE | 2017-04-19 12:40 | PCM.PYCHPN ---
Psychiatric Progress Note - Psychiatric Progress Note Patient seen today, length of contact: Patient evaluated, case discussed with team, chart reviewed, 35 min Patient Chief Complaint: "I'm okay" Problems Identified/Issues Discussed: SW and loan underwriter met with family on Wednesday to discuss disposition. No significant events over the weekend. No episodes of aggression or agitation. Patient is calm, cooperative and pleasant. He is A + O x 3, but does have chronic dementia.. He denies currently feeling depressed or anxious. No SI/HI. He reports chronic pain. Diagnostic Results: VPA 25.3 on 04/16/17 Medication Change: No Medical Record Reviewed: Yes Consults ordered or reviewed: Medicine, Neurology, Psychology, Pain Management consults -Psychology consult 04/18/17 Pt is an 86 year old male admitted to [facility] and referred to the loan underwriter for evaluation. On the DRS, pt scored an overall score of 106. Pt scored within normal limits on Construction tasks. Pt's Attention, Conceptualization, Memory and Initiation skills all fell in the Deficient Range. Overall 106 Attention 31 (32 within normal limits) Construction 4 Conceptualization 29 (32 within normal limits) Memory 14 (18 within normal limits Initiation 28 (32 within normal limits) Pt reported living in an [facility]- deficits noted on testing. Thank you for this referral, Dr. Koo Mental Status Examination - Cognitive Function Orientation: Person, Place, Situation, Time Memory: Impaired Attention: Poor Concentration: Poor Association: Loose Fund of Knowledge: Poor Decription of patient's judgement and insights: Chronic poor I/J due to dementia - Mood Mood: Neutral - Affect Affect: Broad - Speech Speech: Appropriate - Formal Thought Process Formal Thought Process: Loosening of associations Psychotic Thoughts and Behaviors: NO AH/VH/paranoia/delusions - Suicidal Ideation Suicidal Ideation: No - Homicidal Ideation Homicidal Ideation: No Goal/Treatment Plan - Goal/Treatment Plan Need for Continued Stay: Severe functional impairment Progress Toward Problem(s) and Goals/Treatment Plan: Dementia w/ behavioral disturbances; Mood Disorder; patient is currently psychiatrically stable for referral to [facility] and senior living placement. -Continue Cymbalta 40 mg PO Daily -Continue Depakote 250 mg PO BID; VPA 25.3 on 04/16/17 -Continue Aricept and Namenda -Neurology consult appreciated, Keppra stopped -Hospitalist consult appreciated -Pain management consult appreciated; will avoid opioids -Individual and group therapy -Case discussed w/ POAs; collateral history obtained -Family meeting took place on Monday 04/16 -Disposition planning Estimated Date of D/C: 04/21/17 - Smoking Cessation Smoking Cessation Initiated: No Reason for not providing: Not indicated
[2017-04-20] MEDS: Artificial Tears Opht Soln OD SCH ×2 (08:30→17:13)
[2017-04-20] MEDS: Divalproex 125 mg Sprinkle Capsule PO SCH ×2 (08:32→17:14)
--- NOTE | 2017-04-20 08:34 | PCM.PYCHPN ---
Psychiatric Progress Note - Psychiatric Progress Note Patient seen today, length of contact: Patient evaluated, case discussed with team, chart reviewed, 35 min Patient Chief Complaint: "I'm okay" Problems Identified/Issues Discussed: No significant events overnight. No episodes of aggression or agitation. Patient is calm, cooperative and pleasant. He is A + O x 3, but does have chronic dementia. He denies currently feeling depressed or anxious. No SI/HI. He reports chronic pain. Diagnostic Results: VPA 25.3 on 04/16/17, VPA 27.4 on 04/20/17 Medication Change: No Medical Record Reviewed: Yes Consults ordered or reviewed: Medicine, Neurology, Psychology, Pain Management consults -Psychology consult 04/18/17 Pt is an 86 year old male admitted to [facility] and referred to the newspaper writer for evaluation. On the DRS, pt scored an overall score of 106. Pt scored within normal limits on Construction tasks. Pt's Attention, Conceptualization, Memory and Initiation skills all fell in the Deficient Range. Overall 106 Attention 31 (32 within normal limits) Construction 4 Conceptualization 29 (32 within normal limits) Memory 14 (18 within normal limits Initiation 28 (32 within normal limits) Pt reported living in an [facility]- deficits noted on testing. Thank you for this referral, Dr. Koo Mental Status Examination - Cognitive Function Orientation: Person, Place, Situation, Time Memory: Impaired Attention: Poor Concentration: Poor Association: Loose Fund of Knowledge: Poor Decription of patient's judgement and insights: Chronic poor I/J due to dementia - Mood Mood: Neutral - Affect Affect: Broad - Speech Speech: Appropriate - Formal Thought Process Formal Thought Process: Loosening of associations Psychotic Thoughts and Behaviors: NO AH/VH/paranoia/delusions - Suicidal Ideation Suicidal Ideation: No - Homicidal Ideation Homicidal Ideation: No Goal/Treatment Plan - Goal/Treatment Plan Need for Continued Stay: Severe functional impairment Progress Toward Problem(s) and Goals/Treatment Plan: Dementia w/ behavioral disturbances; Mood Disorder; patient is currently psychiatrically stable for referral to [facility] and long-term placement. -Continue Cymbalta 40 mg PO Daily -Continue Depakote 250 mg PO BID; VPA 25.3 on 04/16/17, VPA 27.4 on 04/20/17 -Continue Aricept and Namenda -Neurology consult appreciated, Keppra stopped -Hospitalist consult appreciated -Pain management consult appreciated; will avoid opioids -Individual and group therapy -Case discussed w/ POAs; collateral history obtained -Family meeting took place on Monday 04/16 -Disposition planning Estimated Date of D/C: 04/21/17
[2017-04-20] MEDS: Lidocaine 5% Patch TD SCH (08:35)
[2017-04-21] MEDS: Artificial Tears Opht Soln OD SCH ×2 (08:10→17:07)
[2017-04-21] MEDS: Divalproex 125 mg Sprinkle Capsule PO SCH ×2 (08:12→17:08)
[2017-04-21] MEDS: Lidocaine 5% Patch TD SCH (08:17)
--- NOTE | 2017-04-21 08:51 | PCM.PYCHPN ---
Psychiatric Progress Note - Psychiatric Progress Note Patient seen today, length of contact: Patient evaluated, case discussed with team, chart reviewed, 35 min Patient Chief Complaint: "I'm good" Problems Identified/Issues Discussed: No new events. No episodes of aggression or agitation. Patient is calm, cooperative and pleasant. He is A + O x 3, but does have chronic dementia. He denies currently feeling depressed or anxious. No SI/HI. He reports chronic pain. Diagnostic Results: VPA 25.3 on 04/16/17, VPA 27.4 on 04/20/17 Medication Change: No Medical Record Reviewed: Yes Consults ordered or reviewed: Medicine, Neurology, Psychology, Pain Management consults -Psychology consult 04/18/17 Pt is an 86 year old male admitted to [facility] and referred to the chief underwriter for evaluation. On the DRS, pt scored an overall score of 106. Pt scored within normal limits on Construction tasks. Pt's Attention, Conceptualization, Memory and Initiation skills all fell in the Deficient Range. Overall 106 Attention 31 (32 within normal limits) Construction 4 Conceptualization 29 (32 within normal limits) Memory 14 (18 within normal limits Initiation 28 (32 within normal limits) Pt reported living in an [facility]- deficits noted on testing. Thank you for this referral, Dr. Koo Mental Status Examination - Cognitive Function Orientation: Person, Place, Situation, Time Memory: Impaired Attention: Poor Concentration: Poor Association: Loose Fund of Knowledge: Poor Decription of patient's judgement and insights: Chronic poor I/J due to dementia - Mood Mood: Neutral - Affect Affect: Broad - Speech Speech: Appropriate - Formal Thought Process Formal Thought Process: Loosening of associations Psychotic Thoughts and Behaviors: NO AH/VH/paranoia/delusions - Suicidal Ideation Suicidal Ideation: No - Homicidal Ideation Homicidal Ideation: No Goal/Treatment Plan - Goal/Treatment Plan Need for Continued Stay: Severe functional impairment Progress Toward Problem(s) and Goals/Treatment Plan: Dementia w/ behavioral disturbances; Mood Disorder; patient is currently psychiatrically stable for referral to [facility] and exterminator helper placement. -Continue Cymbalta 40 mg PO Daily -Continue Depakote 250 mg PO BID; VPA 25.3 on 04/16/17, VPA 27.4 on 04/20/17 -Continue Aricept and Namenda -Neurology consult appreciated, Keppra stopped -Hospitalist consult appreciated -Pain management consult appreciated; will avoid opioids -Individual and group therapy -Case discussed w/ POAs; collateral history obtained -Family meeting took place on Monday 04/16 -Disposition planning- pending placement, referrals in process Estimated Date of D/C: 04/23/17
--- NOTE | 2017-04-21 14:12 | PCM.BM ---
Treatment Plan Problems - Problems identified on initial assessmt Anxiety Date Initiated: 04/12/17 Time Initiated: 18:59 Assessment reference: NA Status: Active Priority: 3 Agitated/ aggressive behavior Date Initiated: 04/12/17 Time Initiated: 19:00 Assessment reference: NA Status: Active Priority: 1 Ineffective Implse Control Date Initiated: 04/12/17 Time Initiated: 19:01 Assessment reference: NA Status: Active Priority: 2 Treatment assets and liabiliti Patient Assests: cooperative, motivated, good support system, negotiates basic needs Patient Liabilities: medical problems, imparied memory - Milieu Protocol Maintain good personal hygiene: daily Encourage regular showers, daily Remind patient to perform daily oral care, daily Assist patient to perform ADL's Maintain personal safety: every shift Educate patient to report safety concerns to staff, every shift Monitor environment for contraband/sharps Medication safety: Monitor for expected outcome, potential side effects: every shift, Assess barriers to learning: every shift, Assess readiness for medication education: every shift Milieu Narrative: Dementia w/ behavioral disturbances; Mood Disorder; patient is currently psychiatrically stable for referral to [facility] and director long term care placement. -Continue Cymbalta 40 mg PO Daily -Continue Depakote 250 mg PO BID; VPA 25.3 on 04/16/17, VPA 27.4 on 04/20/17 -Continue Aricept and Namenda -Neurology consult appreciated, Keppra stopped -Hospitalist consult appreciated -Pain management consult appreciated; will avoid opioids -Individual and group therapy -Case discussed w/ POAs; collateral history obtained -Family meeting took place on Monday 04/16 -Disposition planning- pending placement, referrals in process Family Contact Family contact: Patient agrees to contact, Telephone contact initiated by staff , Family meeting planned to review treatment plan Family contact name: Mahad (Daughters) Family contacted how many times per week?: 2 Family contact comment: [phone] - Delmy - [facility] Agency contact number: Discharge/Continuing Care - Education Needs Education Needs: Family Medication, Family Diagnosis/Disease Process, Family Coping Skills, Family Anger Management skills, Family Placement options, Family Community resources, Family Activities of Daily Living, Family Uses of Medical Equipment, Family Health Practices/Safety, Family Personal Hygiene/Grooming, Family Aftercare Safety Plan, Patient Medication, Patient Diagnosis/Disease Process, Patient Coping Skills, Patient Anger Management skills, Patient Placement options, Patient Community resources, Patient Activities of Daily Living, Patient Uses of Medical Equipment, Patient Health Practices/Safety, Patient Personal Hygiene/Grooming, Patient Aftercare Safety Plan - Discharge Discharge Criteria: Tolerates medication w/o severe side effects, Free of Suicidal thoughts, Free of agitation, Normal sleep pattern, Ability to care for self, Reduction of target symptoms Discharge to:: Other (Subacute Rehab vs. Assisted Living Facility) - Additional Comments 04/14/17 14:44 Reason for admission reviewed and discussed. Pt's social and medical issues discussed. Pt's medications reviewed. Tx plan reviewed and discussed. Treatment plan will be reviewed with Mahad James on 04/16/17 during scheduled family meeting. - Treatment Team Participation Patient/Family/SO Statement: Dementia w/ behavioral disturbances; Mood Disorder; patient is currently psychiatrically stable for referral to [facility] and residential placement. -Continue Cymbalta 40 mg PO Daily -Continue Depakote 250 mg PO BID; VPA 25.3 on 04/16/17, VPA 27.4 on 04/20/17 -Continue Aricept and Namenda -Neurology consult appreciated, Keppra stopped -Hospitalist consult appreciated -Pain management consult appreciated; will avoid opioids -Individual and group therapy -Case discussed w/ POAs; collateral history obtained -Family meeting took place on Monday 04/16 -Disposition planning- pending placement, referrals in process Discussed with Family/SO: No (Will be discussed during family meeting on 2016) Was Patient/Family/SO present at Treatment Team Meeting: No Treatment Plan Review - Problem Anxiety Time Initiated: 18:59 Progress toward outcomes: resolved Agitated/ aggressive behavior Time Initiated: 19:00 Progress toward outcomes: resolved Ineffective Implse Control Time Initiated: 19:01 Progress toward outcomes: improved - Discharge / Continuing Care Discharge to:: Alf Facility, Other (Subacture Rehab with transition to LTC) Behavioral Health Services: Residential treatment, Other (Medication mangement; structured environment; ) Health Needs: Follow up care/test, Doctor appointments, Special equipment, Nutritional, Medications/Rx, Recreational/Social
--- NOTE | 2017-04-22 08:33 | PCM.PYCHPN ---
Psychiatric Progress Note - Psychiatric Progress Note Patient seen today, length of contact: Patient evaluated, case discussed with team, chart reviewed, 35 min Patient Chief Complaint: "I'm good" Problems Identified/Issues Discussed: No new events overnight. No episodes of aggression or agitation. Patient is calm, cooperative and pleasant. He is A + O x 3, but does have chronic dementia. He denies currently feeling depressed or anxious. No SI/HI. He reports chronic pain. Diagnostic Results: VPA 25.3 on 04/16/17, VPA 27.4 on 04/20/17 Medication Change: No Medical Record Reviewed: Yes Consults ordered or reviewed: Medicine, Neurology, Psychology, Pain Management consults -Psychology consult 04/18/17 Pt is an 86 year old male admitted to [facility] and referred to the sheet writer for evaluation. On the DRS, pt scored an overall score of 106. Pt scored within normal limits on Construction tasks. Pt's Attention, Conceptualization, Memory and Initiation skills all fell in the Deficient Range. Overall 106 Attention 31 (32 within normal limits) Construction 4 Conceptualization 29 (32 within normal limits) Memory 14 (18 within normal limits Initiation 28 (32 within normal limits) Pt reported living in an [facility]- deficits noted on testing. Thank you for this referral, Dr. Koo Mental Status Examination - Cognitive Function Orientation: Person, Place, Situation, Time Memory: Impaired Attention: Poor Concentration: Poor Association: Loose Fund of Knowledge: Poor Decription of patient's judgement and insights: Chronic poor I/J due to dementia - Mood Mood: Neutral - Affect Affect: Broad - Speech Speech: Appropriate - Formal Thought Process Formal Thought Process: Loosening of associations Psychotic Thoughts and Behaviors: NO AH/VH/paranoia/delusions - Suicidal Ideation Suicidal Ideation: No - Homicidal Ideation Homicidal Ideation: No Goal/Treatment Plan - Goal/Treatment Plan Need for Continued Stay: Severe functional impairment Progress Toward Problem(s) and Goals/Treatment Plan: Dementia w/ behavioral disturbances; Mood Disorder; patient is currently psychiatrically stable for referral to [facility] and care home placement. -Continue Cymbalta 40 mg PO Daily -Continue Depakote 250 mg PO BID; VPA 25.3 on 04/16/17, VPA 27.4 on 04/20/17 -Continue Aricept and Namenda -Neurology consult appreciated, Keppra stopped -Hospitalist consult appreciated -Pain management consult appreciated; will avoid opioids -Individual and group therapy -Case discussed w/ POAs; collateral history obtained -Family meeting took place on Monday 04/16 -Disposition planning- pending placement, referrals in process Estimated Date of D/C: 04/23/17 - Smoking Cessation Smoking Cessation Initiated: No Reason for not providing: Not indicated
[2017-04-22] MEDS: Lidocaine 5% Patch TD SCH (08:43)
[2017-04-22] MEDS: Artificial Tears Opht Soln OD SCH ×2 (08:47→17:43)
[2017-04-22] MEDS: Divalproex 125 mg Sprinkle Capsule PO SCH ×2 (08:48→17:43)
[2017-04-22] MEDS: Petrolatum UD PAK TOP SCH (21:01)
[2017-04-23 05:47] VITALS: BP 134/72; RESP 18; TEMP 98.1
--- NOTE | 2017-04-23 10:00 | PCM.PYCHDC ---
Mental Status Examination - Mental Status Examination Orientation: Person, Place, Situation, Time Memory: Impaired Mood: Neutral Affect: Broad Speech: Appropriate Attention: WNL Concentration: WNL Association: WNL Fund of Knowledge: WNL Formal Thought Process: Loosening of associations Description of patient's judgement and insight: Chronic poor I/J due to dementia Psychotic Thoughts and Behaviors: NO AH/VH/paranoia/delusions Suicidal Ideation: No Current Homicidal Ideation?: No Discharge Summary - Discharge Note Reason for Hospitalization: HPI: 86 yo male w/ h/o dementia, depression, presents after he mad a comment that he would be better off to his family. Patient reports a history of depression. He also reports that he cries spontaneously. +Good appetite. + Sleep disturbances. Denies psychosis, SI/HI/paranoia/delusions. He is concerned that he is on too many medications and would like them reduced if possible. He also complaints of chronic pain. He states that he feels anxious intermittently. He reports that being jehovah's witness is a protective factor against suicide. +Memory deficits. +Worries about the welfare of his demented who resides in a different residential. Case discussed w/ POA daughter Delmy Estrada, who stated that patient has been more verbally threatening to staff and irritable. She believes his medications need to evaluated. Treatment options discussed with the POA and she gave bond underwriter to increase medications as clinically indicated. As per daughter, patient may have a history of bipolar disorder. FHx: History of mental illness, but daughter is unaware what the diagnosis was. PPHx: Currently receives psychiatric treatment at the residential. History of outpatient and inpatient treatment, last 3 years ago at [facility]. PMHx: HTN, GERD, Dementia, DM, possible seizure disorder (pt on Keppra), chronic pain, constipation. SHx: Resident at a [facility] home. Denies drugs/etoh/cig use. . Retired garbage truck driver. Used to have 5 children (1 ). Laboratory Data: Abnormal Lab Results 04/23/17 05:49 POC Glucose (mg/dL) 111 H Consultations:: List each consultation separately and include: 1. Reason for request. 2. Findings. 3. Follow-up Consultations: Medicine, Neurology, Psychology, Pain Management consults -Psychology consult 04/18/17 Pt is an 86 year old male admitted to [facility] and referred to the bond underwriter for evaluation. On the DRS, pt scored an overall score of 106. Pt scored within normal limits on Construction tasks. Pt's Attention, Conceptualization, Memory and Initiation skills all fell in the Deficient Range. Overall 106 Attention 31 (32 within normal limits) Construction 4 Conceptualization 29 (32 within normal limits) Memory 14 (18 within normal limits Initiation 28 (32 within normal limits) Pt reported living in an [facility]- deficits noted on testing. Thank you for this referral, Dr. Koo Summary of Hospital Course include:: 1. Description of specific treatment plan utilized for patients during their course of treatmen. 2. Summarize the time- course for resolution of acute symptoms and/or regressed behaviors. 3. Describe issues identified and worked on during hospitalization. 4. Describe medication utilized. 5. Describe medical problems identified and treated. 6. Reassessment of suicide risk Summary of Hospital Course: Patient was admitted to the psychiatry unit. Individual and group therapy were provided. Patient had medicine, neurology and pain management consults to evaluate his current medications. Patient was psychiatrically stabilized on Depakote 250 mg PO BID and Cymbalta 40 mg PO Daily. He was tapered off of Zoloft and Seroquel. Patient is currently calm, cooperative and has not had any episodes of agitation or aggression since admission. - Diagnosis (1) Dementia with behavioral disturbance Current Visit: Yes Status: Acute (2) Mood disorder Current Visit: Yes Status: Acute - Final Diagnosis (DSM 5) Condition upon Discharge: STABLE DSM 5: Dementia w/ Behavioral Disturbances, Mood Disorder unspecified Disposition: HOME/ ROUTINE Follow-up Treatment Plan: Dementia w/ behavioral disturbances; Mood Disorder; patient is currently psychiatrically stable for discharge. -Continue Cymbalta 40 mg PO Daily -Continue Depakote 250 mg PO BID; VPA 25.3 on 04/16/17, VPA 27.4 on 04/20/17 -Continue Aricept and Namenda -Neurology consult appreciated, Keppra stopped -Hospitalist consult appreciated -Pain management consult appreciated; will avoid opioids -Individual and group therapy -Case discussed w/ POAs; collateral history obtained -Family meeting took place on Monday 04/16 -Discharge to assisted living facility as per POA request Prescriptions/Medication Reconciliation: amLODIPine [Norvasc] 10 mg PO DAILY #30 tab Atenolol [Tenormin] 25 mg PO DAILY #30 tab Dextran 70/Hypromellose [Artificial Tears] 1 drop OD BID #1 droperette Divalproex [Depakote] 250 mg PO BID #60 tcp Docusate [Colace] 100 mg PO BID #60 cap Donepezil [Aricept] 10 mg PO HS #30 tab DULoxetine [Cymbalta] 40 mg PO DAILY #60 ecc Famotidine [Pepcid] 20 mg PO Q12 #60 tab Ferrous Sulfate [Feosol] 325 mg PO BID #60 tab Folic Acid 1 mg PO DAILY #30 tab Gabapentin [Neurontin] 300 mg PO BID #60 cap hydrOXYzine HCl [Atarax] 10 mg PO Q8 PRN #30 tab PRN Reason: Itching / Pruritus Ibuprofen [Motrin Tab] 400 mg PO Q6 PRN #30 tab PRN Reason: Pain, Severe (8-10) Lidocaine 5% [Lidoderm] 1 ea TD DAILY #30 patch Lisinopril [Zestril] 20 mg PO DAILY #30 tab Memantine [Namenda] 10 mg PO BID #60 tab SITagliptin [Januvia] 50 mg PO DAILY #30 tab Sucralfate [Carafate Tab] 1 gm PO TID #30 tab Thiamine Mononitrate [Vitamin B-1] 100 mg PO DAILY #30 tablet - Smoking Cessation Smoking Cessation Medication prescribed: No Reason for not providing: Not indicated - Antipsychotic Medications Pt discharged on 2 or more routine antipsychotic medications: No
[2017-04-23] MEDS: Artificial Tears Opht Soln OD SCH (10:19)
[2017-04-23] MEDS: Lidocaine 5% Patch TD SCH (10:19)
[2017-04-23] MEDS: Divalproex 125 mg Sprinkle Capsule PO SCH (10:20)
[2017-04-23] MEDS: Petrolatum UD PAK TOP SCH ×2 (10:24→13:26)
[2017-04-23 10:27] VITALS: PULSE 92
== END 2017-04-23 14:00 | disposition home or self-care (01) | DRG 884 ==
LOC: H.ER 16:17 → H.STEP 16:42
PROVIDERS: ADMIT Psychiatry & Neurology Psychiatry; ATTEND Psychiatry & Neurology Psychiatry
PROC: 3E0234Z Introduction of Serum, Toxoid and Vaccine into Muscle, Percutaneous Approach (ICD-10-PCS; principal; 2017-04-12)
PROC: GZHZZZZ Group Psychotherapy (ICD-10-PCS; 2017-04-13)
PROC: GZ51ZZZ Individual Psychotherapy, Behavioral (ICD-10-PCS; 2017-04-13)
DX: F03.91 Unspecified dementia, unspecified severity, with behavioral disturbance (principal); R45.851 Suicidal ideations; E11.9 Type 2 diabetes mellitus without complications; G40.909 Epilepsy, unspecified, not intractable, without status epilepticus; I10 Essential (primary) hypertension; F31.9 Bipolar disorder, unspecified; F41.8 Other specified anxiety disorders; G89.4 Chronic pain syndrome; K21.9 Gastro-esophageal reflux disease without esophagitis; K59.00 Constipation, unspecified; Z79.899 Other long term (current) drug therapy; Z88.6 Allergy status to analgesic agent; Z98.1 Arthrodesis status; H26.9 Unspecified cataract; K29.70 Gastritis, unspecified, without bleeding; G47.9 Sleep disorder, unspecified; M54.9 Dorsalgia, unspecified; R42 Dizziness and giddiness; Z23 Encounter for immunization